=== PATIENT | male | born 2000 | race Caucasian/White ===

== ENCOUNTER 2020-09-08 10:39 | Emergency (ER) | payer OTHER ==
[2020-09-08] MEDS ORDERED: Ibuprofen 800 MG TAB ONE (11:47)
[2020-09-08] MEDS ORDERED: HYDROcodone/Acetaminophen 5/325 mg Tablet ONE (11:47)
--- NOTE | 2020-09-08 17:08 | RAD ---
RIGHT HAND RADIOGRAPHS THREE VIEWS: 09/08/20 PROVIDED CLINICAL HISTORY: Hand pain status post injury. FINDINGS: On the oblique view, there is an area of probable avulsion fracture involving the ulnar margin of the hammate. No additional fracture is evident. Alignment appears anatomic. Joint spaces appear preserve d. IMPRESSION: Findings suspicious for avulsion fracture involving the hamate. POS: [facility]
== END 2020-09-08 13:19 | disposition home or self-care (01) ==
LOC: ERS 10:39
DX: S62.144A Nondisplaced fracture of body of hamate [unciform] bone, right wrist, initial encounter for closed fracture (principal); W26.9XXA Contact with unspecified sharp object(s), initial encounter
CPT/HCPCS: 29125